=== PATIENT | male | born 1945 | race Caucasian/White ===

== ENCOUNTER 2022-07-01 14:28 | Emergency (ER) | payer OTHER, MEDICARE, BC ==
[2022-07-01] MEDS ORDERED: Sodium Chloride 0.9% 10 ML Syringe FLUSH PRN (14:51)
[2022-07-01] MEDS ORDERED: Diltiazem 25 MG/5 ML SDV IVPUSH ONE (15:00)
[2022-07-01] MEDS ORDERED: Diltiazem 100 MG in Sodium Chloride 0.9% 100 ML IV SCH (15:00)
[2022-07-01] MEDS ORDERED: Aspirin 81 MG Tab.Chew PO ONE (15:06)
[2022-07-01 15:18] LABS: TROPONIN I HIGH SENSITIVITY 7020.3 pg/mL (<=60.3)
[2022-07-01] MEDS ORDERED: Heparin Sodium 5,000 Units/ML Vial IVPUSH ONE (15:21)
[2022-07-01] MEDS ORDERED: Heparin Sodium/D5W 25,000 UNITS/500 ML BAG IV SCH (15:30)
[2022-07-01 15:51] LABS: CORONAVIRUS COVID-19 NAA NEGATIVE (NEGATIVE)
[2022-07-01 16:35] VITALS: BP 114/68; PULSE 87
== END 2022-07-01 17:10 ==
LOC: JP.ED 14:28
DX: I48.91 Unspecified atrial fibrillation (principal); I10 Essential (primary) hypertension; R77.8 Other specified abnormalities of plasma proteins; E11.9 Type 2 diabetes mellitus without complications; E66.9 Obesity, unspecified; Z88.5 Allergy status to narcotic agent; Z88.8 Allergy status to other drugs, medicaments and biological substances; Z87.891 Personal history of nicotine dependence; Z20.822 Contact with and (suspected) exposure to COVID-19; Z68.35 Body mass index [BMI] 35.0-35.9, adult
CPT/HCPCS: 0241U; 36415; 80048; 83880; 84443; 84484; 85025; 85610; 85730; 93005; 96365; 96366; 96368; 96375; 99285; A9270; J1644; J3490

== ENCOUNTER 2022-09-02 14:12 | Inpatient (IN) | payer OTHER, MEDICARE, BC ==
[2022-09-02] MEDS ORDERED: Sodium Chloride 0.9% 10 ML Syringe FLUSH PRN (14:17)
[2022-09-02 15:16] LABS: ESTIMATED GFR 44 mL/min (>60); TROPONIN I HIGH SENSITIVITY 29.3 pg/mL (<=60.3)
[2022-09-02] MEDS ORDERED: Sodium Chloride 0.9% 50 ML IV SCH (21:15)
[2022-09-02] MEDS ORDERED: Iopamidol 612 MG/ML 100 ML Bottle IV SCH (21:15)
[2022-09-02] MEDS ORDERED: Polyethylene Glycol 3350 Powder 17 GM Packet PO PRN (23:31)
[2022-09-02] MEDS ORDERED: Ondansetron 4 MG/2 ML SDV IV PRN (23:31)
[2022-09-02] MEDS ORDERED: Sodium Chloride 0.9% 1,000 ML IV SCH (23:31)
[2022-09-02] MEDS ORDERED: Magnesium Hydroxide 400 MG/5 ML Susp 30 ML Cup PO PRN (23:31)
[2022-09-02] MEDS ORDERED: Ondansetron 4 MG Tab.DIS PO PRN (23:31)
[2022-09-03 00:20] LABS: CORONAVIRUS COVID-19 NAA NEGATIVE (NEGATIVE)
[2022-09-03] MEDS ORDERED: atorvaSTATin 20 MG Tab PO SCH (01:00)
[2022-09-03] MEDS: Fenofibrate,Micronized 67 MG Cap PO SCH ×2 (01:00→18:36)
[2022-09-03] MEDS: Apixaban 5 MG Tab PO SCH ×3 (01:00→20:39)
[2022-09-03 05:47] LABS: ESTIMATED GFR 56 mL/min (>60)
[2022-09-03] MEDS: Pantoprazole 40 MG Tab.CR PO SCH (08:40)
[2022-09-03] MEDS: Aspirin 81 MG Tab.EC PO SCH (08:40)
[2022-09-03] MEDS: Empagliflozin 10 MG Tab PO SCH (08:41)
[2022-09-03] MEDS: Furosemide 20 MG Tab PO SCH (08:41)
[2022-09-03] MEDS ORDERED: Amiodarone 200 MG Tab PO SCH (09:00)
[2022-09-03] MEDS ORDERED: Non-Formulary Medication 1 Each (Gemfibrozil [Gemfibrozil] 600 MG Tablet) PO SCH (09:00)
[2022-09-03] MEDS ORDERED: Non-Formulary Medication 1 Each (Dapagliflozin Propanediol [Farxiga] 10 MG Tablet) PO SCH (09:00)
[2022-09-03] MEDS ORDERED: Pantoprazole 40 MG Tab.CR PO SCH (09:00)
[2022-09-03] MEDS ORDERED: Apixaban 5 MG Tab PO SCH (09:00)
[2022-09-03] MEDS ORDERED: Aspirin 81 MG Tab.Chew PO SCH (09:00)
[2022-09-03] MEDS: Metoprolol Succinate 50 MG Tab.ER PO SCH (10:21)
[2022-09-03] MEDS ORDERED: Non-Formulary Medication 1 Each (Atorvastatin Calcium [Lipitor] 40 MG Tablet) PO SCH (21:00)
[2022-09-04 06:17] LABS: ESTIMATED GFR 87 mL/min (>60)
[2022-09-04] MEDS: Pantoprazole 40 MG Tab.CR PO SCH (07:27)
[2022-09-04] MEDS: Metoprolol Succinate 50 MG Tab.ER PO SCH (08:23)
[2022-09-04] MEDS: Aspirin 81 MG Tab.EC PO SCH (08:24)
[2022-09-04] MEDS: Empagliflozin 10 MG Tab PO SCH (08:24)
[2022-09-04] MEDS: Furosemide 20 MG Tab PO SCH (08:24)
[2022-09-04] MEDS: Apixaban 5 MG Tab PO SCH (08:24)
[2022-09-04] MEDS ORDERED: Furosemide 40 MG/4 ML VIAL IVPUSH ONE (10:15)
[2022-09-04 10:40] VITALS: BP 91/64; PULSE 100
== END 2022-09-04 14:25 | disposition home health service (06) | DRG 812 ==
LOC: JP.ED 14:12 → JP.MS 22:27
PROVIDERS: ADMIT Internal Medicine; ATTEND Internal Medicine
PROC: 30243N1 Transfusion of Nonautologous Red Blood Cells into Central Vein, Percutaneous Approach (ICD-10-PCS; principal; 2022-09-02)
DX: D50.9 Iron deficiency anemia, unspecified (principal); E87.21 Acute metabolic acidosis; I50.22 Chronic systolic (congestive) heart failure; R74.01 Elevation of levels of liver transaminase levels; I25.10 Atherosclerotic heart disease of native coronary artery without angina pectoris; E11.42 Type 2 diabetes mellitus with diabetic polyneuropathy; T38.3X5A Adverse effect of insulin and oral hypoglycemic [antidiabetic] drugs, initial encounter; Z20.822 Contact with and (suspected) exposure to COVID-19; T46.6X5A Adverse effect of antihyperlipidemic and antiarteriosclerotic drugs, initial encounter; T46.2X5A Adverse effect of other antidysrhythmic drugs, initial encounter; K21.9 Gastro-esophageal reflux disease without esophagitis; M81.0 Age-related osteoporosis without current pathological fracture; H54.7 Unspecified visual loss; I48.0 Paroxysmal atrial fibrillation; E78.5 Hyperlipidemia, unspecified; I11.0 Hypertensive heart disease with heart failure; Z88.5 Allergy status to narcotic agent; Z79.82 Long term (current) use of aspirin; Z95.1 Presence of aortocoronary bypass graft; Z79.899 Other long term (current) drug therapy; Z87.891 Personal history of nicotine dependence; Z79.84 Long term (current) use of oral hypoglycemic drugs
CPT/HCPCS: 0241U; 36415; 80053; 82947; 83605; 85018; 85027; 93306; 97110; 97161; 99222; 99232; 99239; 36430; 71045; 71045-26; 74177; 76705; 84484; 85025; 86850; 86900; 86901; 86920; 86922; 93005; 93010; 99285; A9270-GY; J1940; J3490; J7030; P9016; Q9967

== ENCOUNTER 2022-11-02 12:26 | Emergency (ER) | payer MEDICARE, BC ==
[2022-11-02 12:57] VITALS: BP 110/69; PULSE 92
[2022-11-02] MEDS ORDERED: Sodium Chloride 0.9% 10 ML Syringe FLUSH PRN (13:19)
[2022-11-02] MEDS ORDERED: Ondansetron 4 MG/2 ML SDV IVPUSH ONE (13:20)
[2022-11-02] MEDS ORDERED: Sodium Chloride 0.9% 1,000 ML IV ONE (13:21)
[2022-11-02 13:36] LABS: HEMATOCRIT 33.6 % (38.4-49.7); HEMOGLOBIN 10.7 g/dL (12.9-16.9); MEAN CORPUSCULAR HEMOGLOBIN 27.5 pg (31.6-35.5); MEAN CORPUSCULAR HGB CONC 31.8 g/dL (31.6-35.5); MEAN CORPUSCULAR VOLUME 86.4 fL (81.4-99.0); PLATELET COUNT,PLT 255 K/uL (130-375); RED BLOOD CELL COUNT 3.89 M/uL (4.14-5.76); WHITE BLOOD CELL COUNT,WBC 1.3 K/uL (3.2-11.0)
[2022-11-02 13:58] LABS: A/G RATIO 0.7 (1.2-2.2); ALANINE AMINOTRANSFERASE,ALT 33 U/L (12-78); ALBUMIN 3.3 g/dL (3.4-5.0); ALKALINE PHOSPHATASE 69 U/L (46-116); ASPARTATE AMNIOTRANSFERASE,AST 38 U/L (15-37); BAND ABSOLUTE MAN 0.03 K/uL; BAND PERCENT MAN 2 % (5-11); BILIRUBIN TOTAL 0.5 mg/dL (0.2-1.0); BLOOD UREA NITROGEN,BUN 28 mg/dL (7-18); CALCIUM 8.5 mg/dL (8.5-10.1); CARBON DIOXIDE,CO2 26 mmol/L (21-32); CHLORIDE,CL 100 mmol/L (100-108); CREATININE 1.2 mg/dL (0.8-1.3); EOSINOPHILS ABSOLUTE MAN 0.08 K/uL (0.00-0.40); EOSINOPHILS PERCENT MAN 6 % (2-4); EST CRCL DRUG DOSING (CG) 51.54 mL/min; ESTIMATED GFR 62 mL/min (>60); GLUCOSE RANDOM 152 mg/dL (74-106); LYMPHOCYTES PERCENT MAN 54 % (24-44); MONOCYTES ABSOLUTE MAN 0.03 K/uL (0.20-0.90); MONOCYTES PERCENT MAN 2 % (2-6); NEUTROPHILS ABSOLUTE MAN 0.47 K/uL (1.0-7.6); POTASSIUM,K 4.5 mmol/L (3.6-5.2); PROTEIN TOTAL,TP 7.9 g/dL (6.4-8.2); SEG NEUTROPHILS PERCENT MAN 36 % (36-66); SODIUM,NA 135 mmol/L (140-148)
[2022-11-02 14:00] LABS: ANION GAP 13.5 mmol/L (5.0-14.0)
[2022-11-02] MEDS ORDERED: Prochlorperazine 10 MG Tab PO ONE (14:31)
== END 2022-11-02 16:35 | disposition home or self-care (01) ==
LOC: JP.ED 12:26
DX: D64.81 Anemia due to antineoplastic chemotherapy (principal); D70.1 Agranulocytosis secondary to cancer chemotherapy; K52.1 Toxic gastroenteritis and colitis; R11.0 Nausea; T45.1X5A Adverse effect of antineoplastic and immunosuppressive drugs, initial encounter; I10 Essential (primary) hypertension; I25.2 Old myocardial infarction; K21.9 Gastro-esophageal reflux disease without esophagitis; N40.0 Benign prostatic hyperplasia without lower urinary tract symptoms; E11.9 Type 2 diabetes mellitus without complications; Z86.16 Personal history of COVID-19; Z88.8 Allergy status to other drugs, medicaments and biological substances; Z88.5 Allergy status to narcotic agent; Z79.82 Long term (current) use of aspirin; Z79.899 Other long term (current) drug therapy; Z95.1 Presence of aortocoronary bypass graft; Z87.891 Personal history of nicotine dependence
CPT/HCPCS: 36415; 70450; 80053; 85025; 87493; 99285; Q0164; 99284; J2405; J3490; J7030

== ENCOUNTER 2023-05-01 06:27 | Day surgery (SDC) | payer MEDICARE, BC ==
[2023-05-01] MEDS ORDERED: Sodium Chloride 0.9% 10 ML Syringe FLUSH PRN (07:00)
[2023-05-01 10:08] VITALS: BP 133/74; PULSE 94
== END 2023-05-01 10:11 | disposition home or self-care (01) ==
LOC: JP.SDS 06:27
PROVIDERS: ATTEND Ophthalmology
DX: H26.9 Unspecified cataract (principal); Z88.5 Allergy status to narcotic agent
CPT/HCPCS: 66984; J3490; V2632

== ENCOUNTER 2023-05-15 07:01 | Day surgery (SDC) | payer MEDICARE, BC ==
[2023-05-15] MEDS ORDERED: Sodium Chloride 0.9% 10 ML Syringe FLUSH PRN (07:30)
[2023-05-15 07:55] VITALS: BP 134/71; PULSE 75
== END 2023-05-15 08:04 | disposition home or self-care (01) ==
LOC: JP.SDS 07:01
PROVIDERS: ATTEND Ophthalmology
DX: H26.9 Unspecified cataract (principal); I10 Essential (primary) hypertension; K21.9 Gastro-esophageal reflux disease without esophagitis
CPT/HCPCS: 66984; J3490; V2632